=== PATIENT | female | born 2000 ===

== ENCOUNTER 2024-12-07 02:12 | Observation (INO) | payer MEDICAID ==
[2024-12-07 03:44] LABS: Fern Testing Negative
--- NOTE | 2024-12-07 04:42 | DVHDS2 ---
Physician Discharge Progress N Final Diagnosis: IUP at 39weeks GBS carrier No SROM Operations or Procedures: Operations or Procedures S: 24yo G1,0000 with EDC of 12/14/24, EGA of 39weeks presents to Place to r/o rupture of membranes. She reports normal movement, no vaginal bleeding, no BEST, vision changes or epigastric pain. Also reports feeling irregular cramps. discomfort/pain level of cramping rated at 4/10; tolerable O: VSS stable A&O x3, Not in acute distress Respiration unlabored and even heart and lung sounds normal. Abdomen: Gravid, soft and non-tender to palpation Extremities; No edema SSE: no viktoriya noted Nitrazine test negative Ferning test neg Vulva dry, no wetness noted SVE 1cm/ 20%/-2, Cephalic, Membranes felt on VE EFM Tracing Reviewed FHR baseline: 135 bpm, moderate variability, Accelerations present, no deceleration Contractions: Q2-6 irregular, 60-110secs and mild to palpation REECE: 10.2cm A: IUP at 39weeks Intact membrane P: Discharge home 3rd trimester emergency signs and symptoms, FMC, pre eclampsia S&S reviewed with patient, advised to return to hospital if any Advised to keep appointment scheduled for Tuesday03/13/25 if undelivered by then Condition on Discharge: Good Disposition: Home Discharge Instructions: Diet: Regular Activity: No Restrictions, As Tolerated Activity comment: Balance activity with rest periods Medications: Continue Vitamin Follow Up Care: Discharge Statement: 3rd trimester emergency S&S FMC, labor & pre-eclampsia precautions reviewed with pt; advised to seek health care if any "Patient was advised to return to the ER or call 911 if any headaches, dizziness, shortness of breath, chest pain, abdominal pain, bleeding, fevers, or worsening of medical condition. Patient was counseled about treatment plan, medications, possible side effects, patientverbalized understanding. All questions were answered to the best of my ability. This discharge took greater then 30 minutes in planning, reviewing documentation, counseling the patient, and discussing with other team members." Visit Coding OBGYN Date of Service: December 07, 2024 Billing Provider: GENEVIEVE NEVAREZ CNM JUNIOR ASSISTANT MANAGER Common Visit Codes: 52464-WTJ/OBS SAME DATE (HIGH) JUNIOR ASSISTANT MANAGER Procedure Codes: 67329-54- NON-STRESS TEST GENEVIEVE NEVAREZ CNM December 07, 2024 04:41
--- NOTE | 2024-12-07 04:54 | DVH ---
LIMITED OB ULTRASOUND > 14 WKS: HISTORY: LOF TECHNIQUE: Multiple real-time grayscale images of the gravid uterus with duplex Doppler color flow an d M-mode spectral analysis. TRANSDUCER: Transabdominal COMPARISON: None FINDINGS/IMPRESSION: heart rate 141 beats per minute REECE 10.2 cm Cephalic Presentation Fundal Placenta without previa or abruption.
== END 2024-12-07 04:13 | disposition home or self-care (01) ==
LOC: LDRP 02:12
PROVIDERS: ADMIT Obstetrics & Gynecology; ATTEND Obstetrics & Gynecology
DX: O62.9 Abnormality of forces of labor, unspecified (principal); O98.813 Other maternal infectious and parasitic diseases complicating pregnancy, third trimester; B95.1 Streptococcus, group B, as the cause of diseases classified elsewhere; O99.820 Streptococcus B carrier state complicating pregnancy; Z3A.39 39 weeks gestation of pregnancy; Z79.899 Other long term (current) drug therapy; Z98.890 Other specified postprocedural states
CPT/HCPCS: 59025; 76815; 84112; 94760; G0378; Q0114

== ENCOUNTER 2024-12-10 21:16 | Observation (INO) | payer MEDICAID ==
--- NOTE | 2024-12-11 05:20 | DVHDS2 ---
Discharge Summary Date of Admission December 10, 2024 at 21:16 Date of Discharge: December 10, 2024 Admitting Diagnosis Patient here with pelvic pain rule out labor. She denies leaking were bleeding. Wounds: None Brief Hx & Hospital Course: Patient had reassuring heart tones in fluid no labor. Condition at Discharge: Good Final Diagnosis/Problems List Reassuring heart in fluid no labor Discharge Disposition: Home Discharge Instruct/Medications Diet: Regular Activity: No Restrictions, As Tolerated Discharge Statement: "Patient was advised to return to the ER or call 911 if any headaches, dizzines s, shortness of breath, chest pain, abdominal pain, bleeding, fevers, or worsening of medical condition. Patient was counseled about treatment plan, medications, possible side effects, patient�verbalized understanding. All questions were answered to the best of my ability. This discharge took greater then 30 minutes in planning, reviewing documentation, counseling the patient, and discussing with other team members." ASSESSMENT ASSESSMENT Assessment Visit Coding OBGYN Date of Service: December 11, 2024 Billing Provider: ADELA MOSQUEDA DO STORAGE SOLUTIONS ARCHITECT Common Visit Codes: 26918-RLV/OBS SAME DATE (LOW), 74690-IDK/OBS SAME DATE (MOD), 03814-SBO/OBS SAME DATE (HIGH) STORAGE SOLUTIONS ARCHITECT Procedure Codes: 37861-81- NON-STRESS TEST ADELA MOSQUEDA DO December 11, 2024 05:20
== END 2024-12-10 23:21 | disposition home or self-care (01) ==
LOC: LDRP 21:16
PROVIDERS: ADMIT Obstetrics & Gynecology; ATTEND Obstetrics & Gynecology
DX: O26.893 Other specified pregnancy related conditions, third trimester (principal); R10.2 Pelvic and perineal pain; Z98.890 Other specified postprocedural states; Z79.899 Other long term (current) drug therapy; Z3A.39 39 weeks gestation of pregnancy
CPT/HCPCS: 59025; 81002; G0378

== ENCOUNTER 2024-12-11 20:57 | Observation (INO) | payer MEDICAID ==
[~2024-12-11] VITALS: Ht 157.5 cm; Wt 79.4 kg
--- NOTE | 2024-12-11 21:35 | DVHDS2 ---
Physician Discharge Progress N Final Diagnosis: Prodromal Labor Operations or Procedures: Operations or Procedures S: 24yo IUP@39.4wks presents to OB triage with c/o UCs q5 min and wants to be induced due to discomforts. +FM, denies LOF/VB/BEST/vision changes/RUQ pain. PNC with Dr. Martinez, uncomplicated. Denies PMH. O: VSS, see CPN NST reactive SVE by RN: /2, intact, vertex (unchanged from 12/10/24) Vistaril 50mg PO given for prodromal labor A: 24yo IUP@39.4wks Prodromal Labor P: D/C home Discussed that there is no medical indication for IOL today. Rest, eat, shower and sleep for comfort at home. FKC/preE/labor precautions reviewed. Condition on Discharge: Stable Disposition: Home Discharge Instructions: Diet: Regular Activity: No Restrictions, As Tolerated Medications: see med list Follow Up Care: Specialist: f/u on 12/14/24 for NST/BPP for term Discharge Statement: "Patient was advised to return to the ER or call 911 if any headaches, dizziness, shortness of breath, chest pain, abdominal pain, bleeding, fevers, or worsening of medical condition. Patient was counseled about treatment plan, medications, possible side effects, patientverbalized understanding. All questions were answered to the best of my ability. This discharge took greater then 30 minutes in planning, reviewing documentation, counseling the patient, and discussing with other team members." Visit Coding OBGYN Date of Service: December 11, 2024 Billing Provider: LATRICIA OLSON CNM TRAINING DESIGNER Common Visit Codes: 55465-HMJPIQT OBS CARE (LOW) TRAINING DESIGNER Procedure Codes: 98961-48- NON-STRESS TEST LATRICIA OLSON CNM December 11, 2024 21:35
[2024-12-11] MEDS: hydrOXYzine 25 MG TAB or CAP PO STA (22:06)
== END 2024-12-11 22:21 | disposition home or self-care (01) ==
LOC: LDRP 20:57
PROVIDERS: ADMIT Obstetrics & Gynecology; ATTEND Obstetrics & Gynecology
DX: O62.0 Primary inadequate contractions (principal); Z98.890 Other specified postprocedural states; Z79.899 Other long term (current) drug therapy; Z3A.39 39 weeks gestation of pregnancy
CPT/HCPCS: 59025; 81002; G0378

== ENCOUNTER 2024-12-13 15:30 | Inpatient (IN) | payer MEDICAID ==
[~2024-12-13] VITALS: Ht 157.5 cm; Wt 73.5 kg
[2024-12-13] MEDS ORDERED: LIDOCAINE 2%HCL (LOCAL ANESTH.) INJ 20ML MDV IJ PRN (16:00)
[2024-12-13] MEDS ORDERED: BUTORPHANOL TARTRATE 2 MG/1 ML VIAL IV PRN ×2 (16:00)
[2024-12-13] MEDS: PENICILLIN G POT 5MIL/D5 50ML 50 ML IV ONE (16:24)
[2024-12-13 16:27] LABS: Basophils # (auto) 0 10 ^3/uL (0-0.2); Basophils % (auto) 0.3 % (0.0-2.0); Eosinophils # (auto) 0 10 ^3/uL (0-0.8); Eosinophils % (auto) 0.2 % (0.0-7.0); Hematocrit 47.8 % (36.0-46.0); Hemoglobin 16.2 g/dL (12.2-16.2); Lymphocytes # (auto) 1.8 10 ^3/uL (0.4-5.4); Mean Corpuscular Hemoglobin 32.7 pg (28.0-32.0); Mean Corpuscular Volume 96.1 fL (80.0-100.0); Monocytes # (auto) 0.6 10 ^3/uL (0-1.3); Monocytes % (auto) 3.9 % (0.0-12.0); Neutrophils # (auto) 12.2 10 ^3/uL (1.6-8.6); Neutrophils % (auto) 83.6 % (37.0-80.0); Platelet Count (auto) 224 10^3/uL (140-450); Red Blood Cells 4.97 10^6/uL (4.0-5.20); Red Cell Distribution Width 13.1 % (11.8-14.3); White Blood Cell 14.6 10^3/uL (4.4-10.8)
[2024-12-13] MEDS: DERMOPLAST 60ML BOTTLE TOP PRN (16:30)
[2024-12-13] MEDS: PHISODERM TOP SOLN 240ML BTL TOP PRN (16:30)
[2024-12-13] MEDS: WITCH HAZEL-GLYCERIN PAD TOP PRN (16:30)
[2024-12-13 16:31] LABS: Urine Bacteria None Seen /hpf (None Seen)
[2024-12-13 16:38] LABS: Urine Blood TRACE /uL (Negative); Urine Clarity Turbid (Clear); Urine Color Light-Yellow (Yellow); Urine Protein, UAD Negative (Negative); Urine Specific Gravity 1.009 (1.001-1.035); Urine Squamous Epithelial Cell MOD /hpf (<5); Urine Urobilinogen Normal (Negative); Urine WBC 51 /HPF (0-5)
--- NOTE | 2024-12-13 16:40 | DVHHP ---
ADMIT DATE: 12/13/2024 CHIEF COMPLAINT: Labor pain. HISTORY OF PRESENT ILLNESS: The patient is a 24-year-old 1 para 0 with EDC 12/16/2024, estimated gestational age of 38+ weeks, admitted for labor. The patient was noted to be 3 cm bulging bag, 90%, sergio every 2 minutes. Denies having any vaginal bleeding or rupture of membrane. PAST MEDICAL HISTORY: None. PAST SURGICAL HISTORY: None. SOCIAL HISTORY: None. FAMILY HISTORY: None. OBSTETRIC AND GYNECOLOGIC HISTORY: GBS positive. Primigravid. ALLERGIES: No known drug allergies. REVIEW OF SYSTEMS: Consistent with HPI. PHYSICAL EXAMINATION: VITAL SIGNS: Stable, afebrile. HEENT: Within normal limits. CARDIOVASCULAR: Regular rate and rhythm. LUNGS: Clear to auscultation. BREASTS: Symmetrical. No masses. ABDOMEN: Gravid. Positive heart. PELVIC: 3 cm, 90%, -1. EXTREMITIES: No clubbing, cyanosis, or edema. IMPRESSION: Intrauterine at 38+ weeks, in labor. PLAN: Admit. Informed consent obtained. May have epidural. May start Pitocin if uterine contractions space out. DO ELIZABETH Hayes/MARIAM TID: [id number] RECEIPT: [id number]
[2024-12-13 16:46] LABS: Anion Gap 11 (5-15); Aspartate Aminotransferase 14 U/L (13-40); Calcium 9.8 mg/dL (8.7-10.4); Chloride 107 mmol/L (98-107); Glucose 89 mg/dL (74-106); INR 0.92 (0.9-1.15); Partial Thromboplastin Time 28.5 SEC (24.5-34.5); Potassium 3.7 mmol/L (3.5-5.1); Prothrombin Time 9.8 sec (9.3-11.8); Sodium 137 mmol/L (136-145); Total Protein 7.3 g/dL (5.7-8.2)
[2024-12-13 16:47] LABS: Albumin 4.1 g/dL (3.2-4.8); Bilirubin, Total 0.7 mg/dL (0.2-1.0)
[2024-12-13 16:48] LABS: Alanine Aminotransferase < 9 U/L (7-40); Alkaline Phosphatase 159 U/L (46-116); BUN/Creatinine Ratio 8.9 (10.0-20.0); Blood Urea Nitrogen < 5 mg/dL (9-23); Carbon Dioxide 19 mmol/L (20-31)
[2024-12-13 16:51] LABS: Amphetamine Screen, Urine Neg (NEGATIVE); Barbiturate Scree,Urine Neg (NEGATIVE); Benzodiazephine Screen, Urine Neg (NEGATIVE); Cannabinoid Screen, Urine Neg (NEGATIVE); Cocaine Screen, Urine Neg (NEGATIVE); Opiate Scree,Urine Neg (NEGATIVE); Phencyclidine Screen, Urine Neg (NEGATIVE)
[2024-12-13] MEDS: ROPIVACAINE HCL 200 ML ONE (17:32)
[2024-12-13] MEDS: ePHEDrine SULFATE 50 MG/ML AMP ONE (17:39)
[2024-12-13] MEDS ORDERED: LACT. RINGERS/OXYTOCIN 20UNITS 1,000 ML IV SCH (19:00)
[2024-12-13] MEDS ORDERED: TERBUTALINE SULFATE 1 MG/ML 1ML VIAL SC PRN (19:00)
[2024-12-13] MEDS: PENICILLIN G POTASSIUM 2,500,000 UNITS in D5W 5% 50 ML IV SCH (20:22)
--- NOTE | 2024-12-13 21:32 | DVHPN2 ---
[facility] Labor Progress Note Date and Time Seen Date Seen: December 13, 2024 Time Seen: 21:05 Subjective Patient reports: No new complaints Objective Vital Signs VSS Afebrile Monitoring Method Monitoring Method: External Heart Rate Heart Rate Baseline: 145 Heart Rate Variability: Moderate Presence of FHR Accelerations: Yes Presence of FHR Decelerations: No Changes in Trends of Patterns: No Contractions Contractions Frequency: Other (Irregular) Duration of Contraction: 50 Contractions Intensity: Mild Contractions Resting Tone: Relaxed Membranes Membranes: Ruptured Amniotic Fluid Color: Clear Vaginal Exam Vaginal Exam Dilation: 4 Vaginal Exam Effacement: 90 Vaginal Exam Station: -1 Vaginal Exam Presentation: VTX Vaginal Exam Show: None Medications Medications - Pitocin: No Medication - Epidural: Yes Lab Results Lab Results Current Medications Medications (Trade) Dose Ordered Sig/Yolis Start Time Stop Time Status Last Admin Dose Admin Lactated Ringer's 1,000 ml @ 125 mls/hr Q8H 12/13/24 16:00 Penicillin G Potassium 50 ml @ 100 mls/hr ONCE ONCE 12/13/24 16:00 12/13/24 16:29 DC 12/13/24 16:24 100 MLS/HR Penicillin G Potassium [id number] units/Dextrose 50 ml @ 100 mls/hr Q4H 12/13/24 20:00 12/13/24 20:22 100 MLS/HR Elise Yun (Tucks) 1 pad PRN PRN 12/13/24 16:00 12/13/24 16:30 1 PAD Sodium Lauryl Sulfate (Phisoderm) 240 ml PRN PRN 12/13/24 16:00 12/13/24 16:30 240 ML Benzocaine (Dermoplast) 1 applic PRN PRN 12/13/24 16:00 12/13/24 16:30 1 APPLIC Butorphanol Tartrate (Stadol Injection) 1 mg Q4HPRN PRN 12/13/24 16:00 12/13/24 20:16 DC Butorphanol Tartrate (Stadol Injection) 2 mg Q4HPRN PRN 12/13/24 16:00 12/13/24 20:16 DC Lidocaine HCl (Xylocaine) 20 ml ONCE PRN 12/13/24 16:00 Oxytocin 1,000 ml @ 6 ml/hr Q24H 12/13/24 19:00 Terbutaline Sulfate (Brethine Inj) 0.25 mg ONCE PRN 12/13/24 19:00 Oxytocin 500 ml @ 999 mls/hr Q31M ONCE 12/13/24 19:00 12/13/24 19:52 DC Oxytocin 500 ml @ 125 mls/hr Q4H ONCE 12/13/24 19:30 12/13/24 23:29 Ondansetron HCl (Zofran) 4 mg Q6HPRN PRN 12/13/24 21:15 UNV Laboratory Tests Test 12/13/24 16:03 12/13/24 16:00 Range/Units White Blood Count 14.6 H 4.4-10.8 10^3/uL Red Blood Count 4.97 4.0-5.20 10^6/uL Hemoglobin 16.2 12.2-16.2 g/dL Hematocrit 47.8 H 36.0-46.0 % Mean Corpuscular Volume 96.1 80.0-100.0 fL Mean Corpuscular Hemoglobin 32.7 H 28.0-32.0 pg Mean Corpuscular Hemoglobin Concent 34.0 32.0-36.0 g/dL Red Cell Distribution Width 13.1 11.8-14.3 % Platelet Count 224 140-450 10^3/uL Mean Platelet Volume 9.7 6.9-10.8 fL Neutrophils (%) (Auto) 83.6 H 37.0-80.0 % Lymphocytes (%) (Auto) 12.0 10.0-50.0 % Monocytes (%) (Auto) 3.9 0.0-12.0 % Eosinophils (%) (Auto) 0.2 0.0-7.0 % Basophils (%) (Auto) 0.3 0.0-2.0 % Neutrophils # (Auto) 12.2 H 1.6-8.6 10 ^3/uL Lymphocytes # (Auto) 1.8 0.4-5.4 10 ^3/uL Monocytes # (Auto) 0.6 0-1.3 10 ^3/uL Eosinophils # (Auto) 0 0-0.8 10 ^3/uL Basophils # (Auto) 0 0-0.2 10 ^3/uL Nucleated Red Blood Cells 0.0 % Prothrombin Time 9.8 9.3-11.8 sec Prothrombin Time INR 0.92 0.9-1.15 Activated Partial Thromboplast Time 28.5 24.5-34.5 SEC Sodium Level 137 136-145 mmol/L Potassium Level 3.7 3.5-5.1 mmol/L Chloride Level 107 98-107 mmol/L Carbon Dioxide Level 19 L 20-31 mmol/L Anion Gap 11 5-15 Blood Urea Nitrogen < 5 L 9-23 mg/dL Creatinine 0.56 0.550-1.02 mg/dL Glomerular Filtration Rate Calc 132 >90 mL/min BUN/Creatinine Ratio 8.9 L 10.0-20.0 Serum Glucose 89 74-106 mg/dL Calcium Level 9.8 8.7-10.4 mg/dL Total Bilirubin 0.7 0.2-1.0 mg/dL Aspartate Amino Transferase (AST) 14 13-40 U/L Alanine Aminotransferase (ALT) < 9 7-40 U/L Alkaline Phosphatase 159 H 46-116 U/L Total Protein 7.3 5.7-8.2 g/dL Albumin 4.1 3.2-4.8 g/dL Treponema pallidum Antibody Non-reactive Negative Hepatitis C Antibody Negative Negative Urine Color Light-yellow Yellow Urine Clarity Turbid H Clear Urine pH 7.0 5.0-9.0 Urine Specific [place] 1.009 1.001-1.035 Urine Protein Negative Negative Urine Ketones Negative Negative Urine Blood Trace H Negative /uL Urine Nitrite Negative Negative Urine Bilirubin Negative Negative Urine Urobilinogen Normal Negative mg/dL Urine Leukocyte Esterase 3+ Negative /uL Urine RBC 1 0 - 4 /hpf Urine Microscopic WBC 51 H 0-5 /HPF Urine Squamous Epithelial Cells Mod <5 /hpf Urine Bacteria None seen None Seen /hpf Urine Glucose Normal Normal mg/dL Urine Opiates Screen Neg NEGATIVE Urine Fentanyl Screen Neg NEGATIVE Urine Barbiturates Screen Neg NEGATIVE Urine Phencyclidine Screen Neg NEGATIVE Urine Amphetamines Screen Neg NEGATIVE Urine Benzodiazepines Screen Neg NEGATIVE Urine Cocaine Screen Neg NEGATIVE Urine Cannabinoids Screen Neg NEGATIVE Assessment Assessment Category 1 tracing SROM Plan Plan Start Pitocin augmentation per protocol Anticipate Plan discussed with: Patient Visit Coding OBGYN Date of Service: December 13, 2024 Billing Provider: SILVESTRE ALVAREZ CNM DELINEATOR Common Visit Codes: NOT BILLABLE SILVESTRE ALVAREZ CNM December 13, 2024 21:32
[2024-12-13] MEDS: ONDANSETRON HCL 4 MG/2 ML VIAL IV PRN (21:36)
[2024-12-14] MEDS: LACT. RINGERS/OXYTOCIN 20UNITS 500 ML IV ONE ×2 (00:21→00:55)
--- NOTE | 2024-12-14 00:38 | LDN2 ---
Labor and Delivery Note Date 12/14/24 Age 24 1 Para 0 AB 0 EDC 12/16/2024 EGA 39W 5D Diagnosis Spontaneous vaginal delivery Vaginal Delivery: VTX Vacuum Assisted: No Placenta: Spontaneous Sex: Male Weight 8-0 (3630 gms) Apgars 8/9 Nuchal Cord Transected: No Amniotic Fluid: Clear Anesthesia Epidural Episiotomy: No Extension: No Repaired with N/A EBL 100cc Labs Blood Bank 12/13/24 16:03: Blood Type B POSITIVE Complications None Conditions Stable Occupational Health Nurse Supervisor Somu Comments/Significant Med Doron None Visit Coding OBGYN Date of Service: December 14, 2024 Billing Provider: SILVESTRE ALVAREZ CNM GAS FURNACE INSTALLER Common Visit Codes: PROCEDURE ONLY GAS FURNACE INSTALLER Procedure Codes: 82779-BLN DEL INCLUDING SILVESTRE ALVAREZ CNM December 14, 2024 00:38
[2024-12-14] MEDS ORDERED: ACETAMINOPHEN 325 MG TAB PO PRN (01:30)
[2024-12-14 03:00] VITALS: BP 108/60; PULSE 91; RESP 18; TEMP 98.7; O2SAT 98
[2024-12-14] MEDS: LACTATED RINGER'S 1,000 ML IV SCH (03:52)
[2024-12-14 07:00] VITALS: BP 97/65; PULSE 91; RESP 16; TEMP 98.4; O2SAT 97
[2024-12-14 11:00] VITALS: BP 94/57; PULSE 87; RESP 16; TEMP 97.9; O2SAT 98
[2024-12-14 15:00] VITALS: BP 100/71; PULSE 71; RESP 18; TEMP 98.1; O2SAT 97
[2024-12-14 19:15] VITALS: BP 114/77; PULSE 71; RESP 18; TEMP 97.8
[2024-12-14] MEDS: DOCUSATE SOD 100 MG CAP PO SCH (21:36)
[2024-12-14 23:00] VITALS: BP 105/70; PULSE 70; RESP 17; TEMP 98.2
--- NOTE | 2024-12-15 02:34 | DVHPN2 ---
Chief Complaints Patient reports: No new complaints Nursing reports: No new complaints Objective Vitals Vital Signs Date Time Temp Pulse Resp B/P (MAP) Pulse Ox O2 Delivery O2 Flow Rate FiO2 12/14/24 23:00 98.2 70 17 105/70 (82) 98.2 12/14/24 19:15 Room Air 12/14/24 15:00 97 Medications Current Medications Medications (Trade) Dose Ordered Sig/Yolis Route PRN Reason Start Time Stop Time Status Last Admin Docusate Sodium (Colace Capsule) 200 mg HS PO 12/14/24 22:00 12/14/24 21:36 General: Normal Lungs: Normal Cardiovascular: Normal Abdominal: Soft Extremities: Normal Studies Laboratory Tests 12/13/24 16:03 Test 12/13/24 16:03 Range/Units Serum Glucose 89 74-106 mg/dL Ass/Plan Assessment S/P Plan DC HOME FU IN 2WKS Visit Coding OBGYN Date of Service: December 15, 2024 Billing Provider: CHARLES ROSARIO DO BASEBALL GLOVE STUFFER Common Visit Codes: 32048-FISZIWEHRC INP/OBS CARE(HIGH), 95097-TXI/OBS DISCH DAY >30MIN CHARLES ROSARIO DO December 15, 2024 02:34
--- NOTE | 2024-12-15 02:36 | DVHDS2 ---
Obstetrics Discharge Summary Obstetrics Discharge Summary Date of Admission: December 13, 2024 Date of Discharge: December 15, 2024 Reason For Admission: Onset of Labor Procedures: NST Intrapartum Procedures: Spontaneous vaginal deliv Procedures: None Operative Complicat: None Discharge Diagnosis: Term -Delivered Discharge Information: Activity (Other), Diet (Routine), Medications (None), Instructions (Routine), Discharge to (Home), Discarge date (-) Visit Coding OBGYN Date of Service: December 15, 2024 Billing Provider: CHARLES ROSARIO DO METAL TESTER Common Visit Codes: 59639-FVT/OBS SAME DATE (HIGH), 78450-EVB/OBS DISCH DAY >30MIN METAL TESTER Procedure Codes: 62331-IKS DELIVERY ONLY CHARLES ROSARIO DO December 15, 2024 02:36
[2024-12-15 03:00] VITALS: BP 95/51; PULSE 76; RESP 18; TEMP 97.7
[2024-12-15] MEDS: IBUPROFEN 600 MG TAB PO PRN (05:06)
[2024-12-15 07:15] VITALS: BP 102/76; PULSE 66; RESP 18; TEMP 97.8
== END 2024-12-15 10:00 | disposition home or self-care (01) | DRG 560 ==
LOC: LDRP 15:30 → OBSVTOIN 15:50 → LDRP 16:21
PROVIDERS: ADMIT Obstetrics & Gynecology; ATTEND Obstetrics & Gynecology
PROC: 10E0XZZ Delivery of Products of Conception, External Approach (ICD-10-PCS; principal; 2024-12-14)
PROC: 3E0R3BZ Introduction of Anesthetic Agent into Spinal Canal, Percutaneous Approach (ICD-10-PCS; 2024-12-14)
PROC: 00HU33Z Insertion of Infusion Device into Spinal Canal, Percutaneous Approach (ICD-10-PCS; 2024-12-14)
DX: O42.92 Full-term premature rupture of membranes, unspecified as to length of time between rupture and onset of labor (principal); Z37.0 Single live birth; Z3A.38 38 weeks gestation of pregnancy
CPT/HCPCS: 36415; 59025; 59409; 62282; 80053; 80307; 81001; 81002; 85025; 85610; 85730; 86780; 86803; 86850; 86900; 86901; 94760; 96360; 96361; 96365; 96366; 96374; G0378; J2405; J2540; J2590; J7060